=== PATIENT | female | born 1995 | race Caucasian/White ===

== ENCOUNTER 2020-11-28 16:36 | Outpatient (CLI) | payer BC, SELFPAY ==
--- NOTE | 2020-11-28 16:52 | OBADM ---
This patient, Reyna Huff, admitted to the OB room [facility] for observation. Patient/family oriented to hospital policies and general routines including ID bracelet, bed and alarms, visiting hours, pain management, procedures, bathroom and other care routines, personal items, smoking policy, room service/diet, and visiting hours. Patient/Family are encouraged to report perceived risks to care and to ask questions if they do not understand what they are told or what they should do.
[2020-11-28 16:54] VITALS: BP 130/79; PULSE 116; RESP 20; TEMP 36.9
[2020-11-28 16:58] VITALS: BMI 28.5
[2020-11-28 17:00] VITALS: BP 125/78; PULSE 115
[2020-11-28 17:28] LABS: Basophils Percent Auto 0.2 % (0.2-1.2); Eosinophils Absolute Auto 0.1 K/mm3 (0-0.3); Eosinophils Percent Auto 0.6 % (0-4.4); Hematocrit 36.4 % (37.0-47.0); Hemoglobin 12.3 g/dL (12.0-15.0); Immature Granulocyte Absolute 0.16 K/mm3 (0.00-0.031); Immature Granulocyte Percent A 1.5 % (0-0.5); Lymphocytes Absolute Auto 1.64 K/mm3 (0.9-3.2); Lymphocytes Percent Auto 15.1 % (18.3-44.2); Mean Corpuscular HGB Conc 33.8 g/dl (32-36); Mean Corpuscular Hemoglobin 31.9 pg (26-34); Mean Corpuscular Volume 94.5 fl (80-100); Mean Platelet Volume 12.2 fl (7.4-10.4); Monocytes Absolute Auto 0.7 K/mm3 (0.1-0.6); Monocytes Percent Auto 6.3 % (2.6-8.5); Neutrophils Absolute Auto 8.3 K/mm3 (1.3-6.7); Neutrophils Percent Auto 76.3 % (45.5-73.1); Platelet Count Result 136 k/mm3 (150-375); Red Blood Count 3.85 M/mm3 (4.2-5.4); Red Cell Distribution Width 13.2 % (11.5-14.5); White Blood Count 10.8 K/mm3 (4.5-10.0)
[2020-11-28 17:32] VITALS: BP 124/77; PULSE 102
[2020-11-28 17:33] LABS: Add Urine Microscopic? YES; Appearance Urine Cloudy (Clear); Bacteria Urine Trace /hpf; Bilirubin Urine Negative (Negative); Blood Urine Negative (Negative); Color Urine Yellow (Yellow); Glucose Urine UA Negative (Negative); Ketones Urine Negative (Negative); Leukocyte Esterase Ur 1+ LEU/UL (NEGATIVE); Mucus Urine Rare /lpf; Nitrate Urine Negative (Negative); Protein Urine Negative (Negative); RBC Urine 0-2 /hpf (0-2); Specific Grav Ur 1.006 (1.001-1.035); Squamous Epithelial Cell Urine Many /hpf (Few); Urobilinogen Urine Negative mg/dL (<2.0); WBC Urine 0-3 /hpf (0-3)
[2020-11-28 17:37] VITALS: BP 125/78; PULSE 115
[2020-11-28 17:41] LABS: Alanine Aminotransferase 17 U/L (4-35); Albumin Level 3.6 g/dL (3.5-5.1); Alkaline Phosphatase 110 U/L (38-126); Anion Gap 6 mmol/L (8-16); Aspartate Amino Transferase 24 U/L (14-36); Bilirubin,Total 0.3 mg/dL (0.2-1.3); Blood Urea Nitrogen 4 mg/dL (7-17); Calcium 9.2 mg/dL (8.4-10.2); Carbon Dioxide 23 mmol/L (22-30); Chloride 106 mmol/L (98-107); Estimated CRCL calculation 183 ml/min; Estimated Glomerular Filt Rate > 60; Glucose 103 mg/dL (65-110); Potassium 3.6 mmol/L (3.4-5.0); Sodium 135 mmol/L (137-145); Uric Acid 4.1 mg/dL (2.5-7.5)
[2020-11-28 18:00] VITALS: BP 101/81; PULSE 90
[2020-11-28 18:21] LABS: Creatinine Urine 32.9 mg/dL; Total Protein Urine Random 13 mg/dL
--- NOTE | 2020-11-28 18:52 | PM.OBTRLD ---
OB - Triage/Final Diagnosis Visit Information Comments/Additional reasons for admission: I have assessed the risk for this patient, Reyna Huff, and determined that she would benefit from observation care. Evaluation Laboratory results: Laboratory Tests 11/28/20 11/28/20 11/28/20 17:17 17:17 17:17 WBC 10.8 H RBC 3.85 L Hgb 12.3 Hct 36.4 L MCV 94.5 MCH 31.9 MCHC 33.8 RDW 13.2 Plt Count 136 L MPV 12.2 H Immature Gran % (Auto) 1.5 H Neut % (Auto) 76.3 H Lymph % (Auto) 15.1 L [place] % (Auto) 6.3 Eos % (Auto) 0.6 Baso % (Auto) 0.2 Lymph # (Auto) 1.64 [place] # (Auto) 0.7 H Eos # (Auto) 0.1 Baso # (Auto) 0.0 Abs Immat Gran (auto) 0.16 H Absolute Neuts (auto) 8.3 H Absolute Nucleated RBC 0.0 Nucleated RBC % 0.0 % Immature Plt Fraction 12.0 H Sodium Potassium Chloride Carbon Dioxide Anion Gap BUN Creatinine Estim Creat Clear Calc Estimated GFR Glucose Uric Acid Calcium Total Bilirubin AST ALT Alkaline Phosphatase Total Protein Albumin Urine Color Yellow Urine Appearance Cloudy H Urine pH 8.0 Ur Specific [place] 1.006 Urine Protein Negative Urine Glucose (UA) Negative Urine Ketones Negative Ur Blood (Man) Negative Urine Nitrate Negative Urine Bilirubin Negative Urine Urobilinogen Negative Ur Leukocyte Esterase 1+ H Urine RBC 0-2 Urine WBC 0-3 Ur Squamous Epith Cells Many H Urine Bacteria Trace Urine Mucus Rare U Random Total Protein 13 Urine Creatinine 32.9 Protein/Creat Ratio 2 0.40 H 11/28/20 17:17 WBC RBC Hgb Hct MCV MCH MCHC RDW Plt Count MPV Immature Gran % (Auto) Neut % (Auto) Lymph % (Auto) [place] % (Auto) Eos % (Auto) Baso % (Auto) Lymph # (Auto) [place] # (Auto) Eos # (Auto) Baso # (Auto) Abs Immat Gran (auto) Absolute Neuts (auto) Absolute Nucleated RBC Nucleated RBC % % Immature Plt Fraction Sodium 135 L Potassium 3.6 Chloride 106 Carbon Dioxide 23 Anion Gap 6 L BUN 4 L Creatinine 0.40 L Estim Creat Clear Calc 183 Estimated GFR > 60 Glucose 103 Uric Acid 4.1 Calcium 9.2 Total Bilirubin 0.3 AST 24 ALT 17 Alkaline Phosphatase 110 Total Protein 6.0 L Albumin 3.6 Urine Color Urine Appearance Urine pH Ur Specific [place] Urine Protein Urine Glucose (UA) Urine Ketones Ur Blood (Man) Urine Nitrate Urine Bilirubin Urine Urobilinogen Ur Leukocyte Esterase Urine RBC Urine WBC Ur Squamous Epith Cells Urine Bacteria Urine Mucus U Random Total Protein Urine Creatinine Protein/Creat Ratio 2 Vital signs: Vital Signs - 24 hr 11/28/20 16:54 11/28/20 17:00 11/28/20 17:32 Temperature 36.9 C Pulse Rate 116 H 115 H 102 H Respiratory Rate 20 Blood Pressure 130/79 125/78 124/77 Blood Pressure [Left Arm] 11/28/20 17:37 11/28/20 18:00 Temperature Pulse Rate 115 H 90 Respiratory Rate Blood Pressure 101/81 Blood Pressure [Left Arm] 125/78 Final Diagnosis (1) Headache: Code(s): R51.9 - Headache, unspecified Status: Acute
--- NOTE | 2020-11-28 18:55 | PC.NURSE ---
Dr. Cali reviewed labs and vital signs, in to discuss plan of care with pt. Orders to d/c home received
== END 2020-11-28 19:05 | disposition home or self-care (01) ==
LOC: ANHOBOP 16:41 → ANHOBPP 16:49
PROVIDERS: Visit Provider Obstetrics & Gynecology
DX: R51.9 Headache, unspecified (principal); H53.8 Other visual disturbances
CPT/HCPCS: 36415; 59025; 80053; 81001; 82570; 84156; 84550; 85025; 85055; 87086; 99199

== ENCOUNTER 2020-12-01 09:12 | Outpatient (RCR) | payer BC, SELFPAY ==
[2020-12-01 09:56] LABS: Basophils Percent Auto 0.3 % (0.2-1.2); Eosinophils Absolute Auto 0.2 K/mm3 (0-0.3); Eosinophils Percent Auto 1.9 % (0-4.4); Hematocrit 40.1 % (37.0-47.0); Hemoglobin 13.2 g/dL (12.0-15.0); Immature Granulocyte Absolute 0.19 K/mm3 (0.00-0.031); Immature Granulocyte Percent A 2.2 % (0-0.5); Lymphocytes Absolute Auto 1.81 K/mm3 (0.9-3.2); Lymphocytes Percent Auto 20.5 % (18.3-44.2); Mean Corpuscular HGB Conc 32.9 g/dl (32-36); Mean Corpuscular Hemoglobin 31.7 pg (26-34); Mean Corpuscular Volume 96.4 fl (80-100); Mean Platelet Volume 12.3 fl (7.4-10.4); Monocytes Absolute Auto 0.7 K/mm3 (0.1-0.6); Monocytes Percent Auto 7.8 % (2.6-8.5); Neutrophils Absolute Auto 5.9 K/mm3 (1.3-6.7); Neutrophils Percent Auto 67.3 % (45.5-73.1); Platelet Count Result 109 k/mm3 (150-375); Red Blood Count 4.16 M/mm3 (4.2-5.4); Red Cell Distribution Width 13.4 % (11.5-14.5); White Blood Count 8.8 K/mm3 (4.5-10.0)
[2020-12-01 09:56] LABS: Creatinine Urine 31.4 mg/dL; Total Protein Urine Random 15 mg/dL; Ur Ttl Prot Creatinine Ratio 0.48 mg/mg (0-0.20)
[2020-12-01 10:01] LABS: Alanine Aminotransferase 17 U/L (4-35); Albumin Level 3.7 g/dL (3.5-5.1); Alkaline Phosphatase 111 U/L (38-126); Anion Gap 7 mmol/L (8-16); Aspartate Amino Transferase 24 U/L (14-36); Bilirubin,Total 0.1 mg/dL (0.2-1.3); Blood Urea Nitrogen 8 mg/dL (7-17); Carbon Dioxide 22 mmol/L (22-30); Chloride 108 mmol/L (98-107); Estimated Glomerular Filt Rate > 60; Glucose 85 mg/dL (65-110); Potassium 3.6 mmol/L (3.4-5.0); Sodium 137 mmol/L (137-145)
[2020-12-01 10:07] LABS: Add Urine Microscopic? YES; Appearance Urine Cloudy (Clear); Bacteria Urine 1+ /hpf; Bilirubin Urine Negative (Negative); Blood Urine Negative (Negative); Color Urine Yellow (Yellow); Glucose Urine UA Negative (Negative); Ketones Urine Negative (Negative); Leukocyte Esterase Ur 2+ LEU/UL (NEGATIVE); Nitrate Urine Negative (Negative); Protein Urine Negative (Negative); Specific Grav Ur 1.008 (1.001-1.035); Squamous Epithelial Cell Urine Many /hpf (Few); Urobilinogen Urine Negative mg/dL (<2.0); WBC Urine 16-20 /hpf (0-3)
--- NOTE | 2020-12-01 10:30 | PC.NURSE ---
Called Dr. Cali with labs results. Will come discuss plan of care with pt.
[2020-12-01 11:16] VITALS: BP 113/81; PULSE 95
--- NOTE | 2020-12-01 11:16 | PC.NURSE ---
Pt transferred to labor for induction due to pre-eclampsia.
== END 2020-12-01 09:30 | disposition home or self-care (01) ==
LOC: ANHOBOP 09:12
PROVIDERS: Visit Provider Obstetrics & Gynecology
DX: O14.93 Unspecified pre-eclampsia, third trimester (principal); Z3A.38 38 weeks gestation of pregnancy
CPT/HCPCS: 36415; 59025; 80053; 81001; 82570; 84156; 84550; 85025; 87086

== ENCOUNTER 2020-12-01 09:12 | Inpatient (IN) | payer BC, SELFPAY ==
[2020-12-01] VITALS (180 sets, daily range): BP systolic 87–136; BP diastolic 47–89; PULSE 64–143; RESP 18; TEMP 36.8–37.4; O2SAT 97–100; BMI 28.6
--- NOTE | 2020-12-01 11:31 | PM.IMHP ---
H&P: HPI History of Present Illness Date/Time: 12/01/20 11:14 Reyna is a 25yo @ 37.1wks (JOSSELIN 12/21/[birth year]) who initially presented to L&D on 11/28/20 with a mild WISE and vision change that resolved spontaneously; she re-presented today for NST/BPP/Labs and was found to have a PC ratio of 0.49 and plts of 109. She denies any further WISE, vision changes, RUQ pain over the weekend. She has been cramping all weekend. Good movement. No VB or LOF. Her is complicated by: - Pre-eclampsia without severe features - Rubella and pavro non-immune - Mild anemia on iron daily Chief Complaint: induction of labor Review of Systems Review of Systems: All systems reviewed & are unremarkable except as noted in HPI and below (HPI) [facility] Family History Family History Grandparent Cancer Hypertension Father Hypertension Social History Social History Substance use: never Spiritual care concerns: No Meds Home Medications and Allergies Home Medications Medication Instructions Recorded Confirmed Type ferrous sulfate 325 mg PO DAILY 11/28/20 11/28/20 History prenat.vits,cristina,[id number] 1 tablet PO DAILY 11/28/20 11/28/20 History [ #2] Allergies Allergy/AdvReac Type Severity Reaction Status Date / Time No Known Allergies Allergy Verified 11/28/20 12:49 Exam Const: General: cooperative, healthy appearing, comfortable and no acute distress Resp: Effort & Inspection: normal respiratory effort Cardio: Rate: regular rate GI: Inspection: normal to inspection and non-distended GI Palp: No abdominal tenderness and Yes Soft to palpation : Other: FHT's: 130's/ mod mikie/ + accels/ occasional mild variables -- overalll reassuring TOCO: irregular ctx Cervix: FT/30/-3 Membranes: intact Presentation: cephalic Skin: General skin exam: normal color Neuro: General: patient oriented x3 Extrem: Right lower extremity: edema Left lower extremity: edema Psych: Appearance: grossly normal Affect: normal affect Attitude: cooperative Assessment and Plan Assessment and plan (1) Pre-eclampsia in third trimester: Code(s): O14.93 - Unspecified pre-eclampsia, third trimester Status: Acute (2) Encounter for induction of labor: Code(s): Z34.90 - Encounter for supervision of normal , unspecified, unspecified trimester Status: Acute (3) : Qualifiers: Weeks of gestation: 37 weeks Qualified Code(s): Z3A.37 - 37 weeks gestation of Code(s): Z34.90 - Encounter for supervision of normal , unspecified, unspecified trimester Status: Acute Additional Plan - Admit to L&D for IOL - Cervidil now; plan for pitocin/AROM after - Continuous monitoring; currently reassuring - Monitor BP's/labs - Pt asymptomatic - Anesthesia consult PRN pain - GBS negative
--- NOTE | 2020-12-01 11:33 | WPDHPUPDATE1 ---
History and Physical Update Update Date/Time: 12/01/20 11:33 History and Physical has been reviewed, including an updated exam of the patient. There are NO changes in the patient's condition. Risks, benefits, and alternatives have been discussed and questions answered. Patient agrees to proceed with procedure.
--- NOTE | 2020-12-01 11:59 | LDADM ---
This patient, Reyna Huff, was admitted to Labor/Delivery/Recovery 108 on 12/01/20 at 09:12. Plans for labor, pain management and were discussed with patient. Patient/family oriented to hospital policies and general routines including ID bracelet, bed and alarms, visiting hours, pain management, procedures, bathroom and other care routines, personal items, smoking policy, room service/diet and guest tray routines, security routines, and visiting hours. Patient/Family are encouraged to report perceived risks to care and to ask questions if they do not understand what they are told or what they should do. See OBIX for further documentation.
[2020-12-01] MEDS: DINOPROSTONE 10 MG VAG INSERT VAGINAL (12:22)
[2020-12-01] MEDS: LACTATED RINGERS 1,000 ML 125 ML IV CONT ×2 (12:59→17:49)
[2020-12-01] MEDS: fentaNYL CITRATE INJ (*CRX) 100 MCG/2 ML VIAL 50 MCG IV PUSH (13:42)
[2020-12-01] MEDS: LACTATED RINGERS 1,000 ML 999 ML IV CONT (15:17)
--- NOTE | 2020-12-01 15:30 | P.PNAN_ITS ---
Anes - Initial Pre Proc Eval Procedure: labor epidural Date/Time: 12/01/20 15:30 Surgeon: Lynette Cali MD Pre Op Diagnosis: labor pain Pre Op Diagnosis: Induction of Labor Patient Data Age: 25 Gender: F Height: 1.65 m Weight: 78 kg Last Vital Signs Temp 37.3 C 12/01/20 12:00 Pulse 89 12/01/20 15:28 BP 117/61 12/01/20 15:28 Pulse Ox 100 12/01/20 15:26 Allergies Allergy/AdvReac Type Severity Reaction Status Date / Time No Known Allergies Allergy Verified 11/28/20 12:49 Home Medications Medication Instructions Recorded Confirmed Type ferrous sulfate 325 mg PO DAILY 11/28/20 11/28/20 History prenat.vits,cristina,[id number] 1 tablet PO DAILY 11/28/20 11/28/20 History [ #2] Laboratory Tests 12/01/20 12/01/20 12:04 12:04 RPR Pending Blood Type A Positive Antibody Screen Negative Patient hx anesthesia problems: none Family hx anesthesia problems: none Results Review: All pre-operative results and documents have been reviewed as part of the pre-operative evaluation. PMFSH Family History Family History Grandparent Cancer Hypertension Father Hypertension Social History Social History Smoking status: Never smoker Substance use: never Spiritual care concerns: No Anes - Eval Final PreProcedure Day of Procedure 12/01/20 15:30 Patient weight: overweight ASA classification: II Anesthesia type and monitoring: regional epidural and standard monitoring Results Review: All pre-operative results and documents have been reviewed as part of the pre-operative evaluation. Informed Consent: The patient's anesthetic plan and its attendant risks and siomara efits were discussed with the patient/family/POA. Questions were solicited and answers provided to the satisfaction of the patient/family/POA.
--- NOTE | 2020-12-01 16:35 | PM.OBPNLAB ---
Pain Control Date/time seen: 12/01/20 16:35 Pain control: epidural Pelvic Exam Dilation (cm): 3 Effacement (%): 50 station: -2 Amniotic membrane status: Ruptured (clear, AROM @ 1630) Contractions Monitor mode: External Contraction frequency: 2 Contraction pattern: Regular Contraction intensity: Moderate Status status: Category l Assessment and Plan Assessment: induction ongoing Plan: continuous present management Comments: - Pitocin augmentation if no change in cervix for contractions space out
[2020-12-01] MEDS: OXYTOCIN 30 UNITS/NS 500 ML 30 UNITS/500 ML BAG 999 UNITS IV CONT (21:20)
--- NOTE | 2020-12-01 21:45 | PM.OBPRVD ---
OB - Delivery Note Procedure Delivery date: 12/01/20 events: Pre-Eclampsia Induction method: per cervidil protocol Delivery augmentation: rupture of membranes Delivery monitor: external FHT and external uterine Route of delivery: Laceration Description: Periurethral (right) and Labial (left) Delivery repair: vicryl Specimen: Yes Quantitative Blood Loss (ml): 200 Anesthesia type: Epidural Disposition: floor [place] Baby Date of : 12/01/20 Time of : 21:16 Weeks of gestation at delivery: 37 (.1) Infant gender: Male Weight (pounds): 6 Weight (ounces): 12 presentation: vertex position: Right Occiput Anterior Placenta delivery description: Expressed cord vessel description: 3 Vessels and Delayed Cord Clamping score one minute: 9 score five minutes: 9 Narrative: Reyna rapidly progressed to complete dilation with desire to push. She pushed for approximately 15 minutes with good maternal effort. She delivered the head over intact perineum. No nuchal cord was palpated. She easily delivered the 's shoulders and body without complication. The infant had spontaneous cry and was immediately placed skin to skin. His mouth was bulb suctioned. Delayed cord clamping was performed. The umbilical cord was then clamped and cut. With Pitocin running and gentle downward traction on the cord, the placenta delivered without complications. Bimanual massage was performed and good fundal tone with minimal bleeding was noted. The cervix, vagina, perineum were examined and a left labial laceration and a right periurethral laceration were noted. The right periurethral laceration was repaired using 3-0 Vicryl in 2 separate U stitches and good hemostasis was noted. The left labial laceration was repaired using 3-0 Vicryl in the normal fashion. Good hemostasis was noted and the fundus was palpated firm. Sponge, lap, instrument, and needle counts were correct at the end of the procedure. Mom and baby were left bonding in the birthing suite in stable condition.
[2020-12-01] MEDS: OXYTOCIN 30 UNITS/NS 500 ML 30 UNITS/500 ML BAG 125 UNITS IV CONT (21:51)
[2020-12-01] MEDS: IBUPROFEN 600 MG TABLET PO (23:51)
[2020-12-02] VITALS (7 sets, daily range): BP systolic 115–144; BP diastolic 51–76; PULSE 89–112; RESP 18; TEMP 36.4–37.3; O2SAT 99–100
[2020-12-02] MEDS: ACETAMINOPHEN 325 MG TABLET 650 MG PO (03:50)
[2020-12-02 05:46] LABS: Hematocrit 33.5 % (37.0-47.0); Hemoglobin 11.2 g/dL (12.0-15.0)
--- NOTE | 2020-12-02 07:21 | WPDANLDPN2 ---
Anes-Prog Note L&D Date/Time: 12/02/20 07:21 Comfortable throughout: labor and delivery Neuraxial method: epidural Epidural/Spinal procedure site: clean & non-tender Neuro status: Neuro function grossly intact. Cardiovascular status: normal Respiratory status: normal Airway patency: baseline Mental status: baseline Post-Op hydration status: normal Vital Signs: Last Vital Signs Temp 36.7 C 12/02/20 04:00 Pulse 112 H 12/02/20 04:00 Resp 18 12/02/20 04:00 BP 120/51 L 12/02/20 04:00 Pulse Ox 100 12/02/20 04:00 Pain score (VAS): 02/16 I/O: Intake & Output 12/01/20 12/01/20 12/02/20 15:59 23:59 07:59 Intake Total 1000 1500 Output Total 1380 Balance 1000 120 Post-procedural complaints: none Patient feedback: Patient satisfied with anesthetic care.
--- NOTE | 2020-12-02 08:45 | PC.NURSE ---
Mother called out for assist with feeding, reporting has been sleepy and has not fed since 2 am. Mother has been given a nipple shield and pumped at 2 to give EBM. is able to freely thrust tongue past gum ridge and flange both lips. Skin is intact on both nipples, no redness and bruising noted. Discussed establishing in the late infant may be more difficult due to their immaturity, may be less alert, have less stamina, and have greater difficulty with latch, suck, and swallow. Infant?s feeding may impact mother?s milk supply, pumping may need to be continued until milk supply is well established and is able to effective without supplementation. Reviewed feeding cues, frequencies, duration of feedings, feeding elimination flow sheet, and signs of adequate intake. Demonstrated stimulation techniques to wake for feeding. Assisted with infant to breast. Reviewed positioning/alignment in cross cradle, holding breast in ?U? hold and guided asymmetrical latch on. Reviewed rational for each. Infant able to latch correctly within a few attempts. Infant made a few weak attempts to nurse with no swallowing noted with long pausing between short bursts. . Reviewed signs of a correct latch, effective nursing and suck swallow ratio. was able to maintain latch without discomfort to mother. Suggested mother stimulate while feeding to increase stimulate, increase intake and to assist with maintaining deep latch. Demonstrated how to adjust latch more deeply while feeding if needed. did not respond to stimulation, he remained latch with no suckling noted. Discussed the difference of effective vs ineffective feeding. Reviewed infant is latching with good burst of suckling, he is not feeding consistently with adequate milk transfer at this time and continues to need to be supplement after . Feeding options discussed, Feeding Plan is for mother to put infant to breast each feeding for up to 15 minutes, then pace feed supplement of EBM/formula 20 mls and pump for 10-15 minutes. Parents are comfortable with supplementation and pumping. If infant begins to nurse effectively with long draws and frequent swallowing noted, may decrease supplementation and discontinue pumping. Suggested mother have LC extruding machine operator observe feeding before discontinuing supplementation. Nipple care reviewed of lanolin after feedings, warm compresses as needed. Instructed mother to call out for RN assistance if she is unable to latch for feeding or she has discomfort with nursing. Instructed feeding should be initiated three hours from start of last feeding or if feeding cues are noted before. Mother voiced understanding of information shared.
[2020-12-02] MEDS: DOCUSATE SODIUM 100 MG CAPSULE PO (09:43)
[2020-12-02] MEDS: MULTIVIT/MIN/PREN/FOL AC/IRON TABLET 1 TAB PO (09:43)
[2020-12-02] MEDS: IBUPROFEN 600 MG TABLET PO (09:47)
[2020-12-02 10:52] LABS: Rapid Plasma Reagin Non-Reactive (NonReactive)
--- NOTE | 2020-12-02 12:05 | PC.NURSE ---
Mother called out for assist with feeding. Demonstrated stimulation techniques to wake for feeding. Assisted with to breast. Reviewed positioning/alignment in cross cradle, holding breast in ?U? hold and guided asymmetrical latch on. Reviewed rational for each. able to latch correctly within a few attempts. Infant made a few weak attempts to nurse with no swallowing noted with long pausing between short bursts. Reviewed signs of a correct latch, effective nursing and suck swallow ratio. Infant was able to maintain latch without discomfort to mother. Suggested mother stimulate while feeding to increase stimulate, increase intake and to assist with maintaining deep latch. Demonstrated how to adjust latch more deeply while feeding if needed. Infant did not respond to stimulation, he remained latch with no suckling noted. Attempt for 15 minutes with no effective nursing noted. Discussed initiating feeding plan of attempting to breast each feeding fo 10-15 minutes, if no effective feeding noted, parents with supplement 15-20 mls and then pump for 15 minutes. Report to primary RN of feeding plan.
--- NOTE | 2020-12-02 16:38 | PM.OBPNVD ---
OB - PN: Subj Subjective Date/time seen: 12/02/20 16:38 PPD#1 Reyna reports doing well today. She reports being very sore, but the pain meds are helping. 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 She has already voided, had a BM, showered/ambulated, and tolerated regular diet. She denies any symptoms of anemia. No symptoms of PEC. She is breast feeding/pumping and supplementing. She would like her son to be circumcised today. She desires to go home as soon as possible. She denies fever, chills, CP, SOB, N/V, WISE, vision changes, palpitations or dizziness. OB - PN: Obj Data Labs CBC & Chem 7: 12/02/20 03:52 Labs: Laboratory Results - last 24 hr 12/01/20 12/02/20 12:04 03:52 Hgb 11.2 L Hct 33.5 L RPR Non-reactive OB - PN A/P Assessment and Plan (1) Status post normal vaginal delivery: Status: Acute (2) Pre-eclampsia in third trimester: Code(s): O14.93 - Unspecified pre-eclampsia, third trimester Status: Acute Plan day: 1 Plan: routine care Comments: - will repeat labs in AM - Monitor BPs overnight; if normal-mild can be discharged home tomorrow - Pelvic rest; take meds as prescribed - ER return precautions: fever, bleeding, HTN, n/v/abd pain - son circumcised w/o issue - f/u in clinic in 2 wks. Time Spent With Patient Time: Total time spent is greater than 50% in coordination of care (as documented) at patient's floor/unit and/or counseling patient: Review of Systems Review of Systems: All systems reviewed & are unremarkable except as noted in HPI and below (HPI) Exam Const: General: cooperative, healthy appearing, comfortable and no acute distress Resp: Effort & Inspection: normal respiratory effort Auscultation: clear to auscultation bilaterally Cardio: Rate: regular rate GI: Inspection: normal to inspection and non-distended GI Palp: No abdominal tenderness and Yes Soft to palpation Auscultation: normal bowel sounds : Other: fundus firm Skin: General skin exam: normal color Neuro: General: patient oriented x3 Extrem: General: normal to inspection Psych: Appearance: grossly normal Affect: normal affect Attitude: cooperative
[2020-12-03] MEDS: IBUPROFEN 600 MG TABLET PO ×2 (02:28→09:01)
[2020-12-03 04:15] VITALS: BP 115/62; PULSE 89; RESP 18; TEMP 36.4; O2SAT 100
[2020-12-03 05:09] LABS: Basophils Absolute Auto 0.1 K/mm3 (0.0-0.1); Basophils Percent Auto 0.4 % (0.2-1.2); Eosinophils Absolute Auto 0.3 K/mm3 (0-0.3); Eosinophils Percent Auto 1.9 % (0-4.4); Hematocrit 34.5 % (37.0-47.0); Hemoglobin 11.4 g/dL (12.0-15.0); Immature Granulocyte Absolute 0.15 K/mm3 (0.00-0.031); Immature Granulocyte Percent A 1.1 % (0-0.5); Immature Platelet Fraction Pct 11.3 % (0.9-11.2); Lymphocytes Absolute Auto 2.83 K/mm3 (0.9-3.2); Lymphocytes Percent Auto 20.4 % (18.3-44.2); Mean Corpuscular Hemoglobin 32.2 pg (26-34); Mean Corpuscular Volume 97.5 fl (80-100); Monocytes Absolute Auto 1.1 K/mm3 (0.1-0.6); Monocytes Percent Auto 7.9 % (2.6-8.5); Neutrophils Absolute Auto 9.5 K/mm3 (1.3-6.7); Neutrophils Percent Auto 68.3 % (45.5-73.1); Platelet Count Result 113 k/mm3 (150-375); Red Blood Count 3.54 M/mm3 (4.2-5.4); Red Cell Distribution Width 13.9 % (11.5-14.5); White Blood Count 13.9 K/mm3 (4.5-10.0)
[2020-12-03 05:19] LABS: Alanine Aminotransferase 18 U/L (4-35); Albumin Level 3.1 g/dL (3.5-5.1); Alkaline Phosphatase 90 U/L (38-126); Anion Gap 7 mmol/L (8-16); Aspartate Amino Transferase 33 U/L (14-36); Bilirubin,Total 0.2 mg/dL (0.2-1.3); Blood Urea Nitrogen 5 mg/dL (7-17); Calcium 8.6 mg/dL (8.4-10.2); Carbon Dioxide 24 mmol/L (22-30); Chloride 107 mmol/L (98-107); Estimated CRCL calculation 151 ml/min; Estimated Glomerular Filt Rate > 60; Glucose 72 mg/dL (65-110); Potassium 3.6 mmol/L (3.4-5.0); Sodium 138 mmol/L (137-145)
[2020-12-03 07:40] VITALS: BP 118/75; PULSE 87; RESP 18; TEMP 36.9; O2SAT 100
[2020-12-03 09:00] VITALS: PULSE 113; RESP 18; O2SAT 100
[2020-12-03] MEDS: MULTIVIT/MIN/PREN/FOL AC/IRON TABLET 1 TAB PO (09:01)
[2020-12-03] MEDS: DOCUSATE SODIUM 100 MG CAPSULE PO (09:01)
--- NOTE | 2020-12-03 11:05 | PC.NURSE ---
Consult with pt., mother reports she continues to put to breast each feeding, infant remains sleepy with little effective nursing noted. Mother will then supplement and pump. Parents report infant is eagerly nippling bottle without issue. Mother is pumping 1-3m mls of colostrum each session. Mother has a [email or web address] II pump for home use and is comfortable with use. Discussed current feeding Plan is for mother to put infant to breast each feeding for up to 15 minutes, then pace feed supplement 25-30 mls and pump for 10-15 minutes. Parents are comfortable with supplementation and pumping. If infant begins to nurse effectively with long draws and frequent swallowing noted, infant may decrease supplementation and discontinue pumping. Suggested mother have LC material expeditor observe feeding before discontinuing supplementation. Discussed increasing supplementation as infant requires to satisfactions. Reviewed paced feeding and suggested to stop when is satisfied, as long as infant is having required output. With increased supplementation infant may not want to feed for 4 hours. Mother will continue to pump on feeding schedule and will increase session to 20 minutes if pumping every 4 hours. Requested mother call out next feeding.
[2020-12-03 11:43] VITALS: BP 132/66; PULSE 113; RESP 18; TEMP 36.5; O2SAT 100
[2020-12-03] MEDS: MEASLES,MUMPS,RUBELLA VACCINE 0.5 ML VIAL SUB-Q (12:52)
--- NOTE | 2020-12-03 13:07 | PC.NURSE ---
Mother states she is ready for discharge and did not call out for last feeding. Mother states she used suggestion of supplementing 5-10 mils then putting infant to breast. Infant latched for 10-20 minutes of good bursts of suckling reported by parents. FOB completed feeding with formula. Mother is able to independently latch infant with appropriate positioning/alignment. She denies any nipple discomfort, is feeding as required and waking to feed if needed. has few attempts with effective feedings all feedings followed with supplementation in the past 24 hours, and is currently meeting outcomes for weight, output, jaundice and feeding frequencies. Infant is more awake and eager to feed today. Infant continues to require supplementation for ineffective feedings. Mother continues to pump without difficulties or discomfort after all feedings due to ineffective feeding. Mother states she feels confident to continue current feeding plan at home. Mother has her own double electric pump for home use. Discussed increasing supplementation as requires to satisfactions. Reviewed paced feeding and suggested to stop when is satisfied, as long as infant is having required output. With increased supplementation infant may not want to feed for 4 hours. Mother will continue to pump on feeding schedule and will increase session to 20 minutes if pumping every 4 hours. Reviewed once mother?s milk is established and is effectively feeding, infant may have increased intake with nursing. If is effective feeding with long draws and frequent swallowing noted, may be ready to decrease/discontinue supplementation. Advised not to discontinue supplement until ICP, Follow-Up RN or LC has a pre/post weighted evaluation of feeding. Discussed nipple shield weaning techniques Reviewed transition to breast milk, signs of adequate intake, and engorgement/relief. Instructed to call ICP if intake/output less than required. Reviewed regular medications mother is taking. Information provided per Ashley. Reviewed community resources on the [employer] website and in the Mom/Baby guide. Information on outpatient services provided. Mother has no further questions at this time.
[2020-12-04 10:32] VITALS: BP 115/70; PULSE 99; RESP 20; TEMP 37.2; O2SAT 100
--- NOTE | 2020-12-18 16:02 | PM.OBDSVD ---
DS: Admitting Diagnosis Discharge Date 12/03/20 Admitting Diagnosis pre-eclampsia w/o severe features DS: Discharge Diagnosis Discharge Diagnosis (1) Status post normal vaginal delivery: Status: Acute (2) Pre-eclampsia in third trimester: Code(s): O14.93 - Unspecified pre-eclampsia, third trimester Status: Acute OB - DS: Summary OB Procedures : NST and Ultrasound OB Procedures Intrapartum: Spontaneous Vag Delivery OB Procedures: : None Peripartum Data Delivery Method: Natural Vaginal Laceration Description: Periurethral and Labial complications: none 1: Gender: Male Disposition of : home Status at Discharge Functional status at discharge: independent ambulation Overall status at discharge: patient is back to baseline Time Spent with Patient Time attestation: Total time spent providing and/or coordinating discharge services: Time spent: Less than 30 minutes Exam Const: General: cooperative, healthy appearing, comfortable and no acute distress Resp: Effort & Inspection: normal respiratory effort Auscultation: clear to auscultation bilaterally Cardio: Rate: regular rate GI: Inspection: normal to inspection and non-distended GI Palp: No abdominal tenderness and Yes Soft to palpation Auscultation: normal bowel sounds : Other: fundus firm Skin: General skin exam: normal color Neuro: General: patient oriented x3 Extrem: General: normal to inspection Psych: Appearance: grossly normal Affect: normal affect Attitude: cooperative DS: Data Data Completed and Pending Completed studies during hospitalization: Pending at discharge 12/01/20 23:28 Surgical [PTH] Routine Discharge Plan Discharge Attending physician on discharge: Lynette Cali Consulting providers: Hilton Jackson Discharging Clinician: Lynette Cali Anticipated Discharge Date/Time: 12/03/20 11:00 Patient Disposition: Home, Self-Care Activity: pelvic rest Diet: regular Discharge Instructions: Education: Mom and Baby Guide Given to: Mother Follow-Up: Call your delivering provider's office for an appointment to be seen in: 2 weeks Mom and baby should come to the [facility] for the follow-up appointment. Appointment Date/Time: December 04, 2020 at 10:00 am What to expect at your follow-up visit: Blood Pressure Check Physical Assessment Call [phone] if you are unable to keep your appointment time. BREAST CARE: * Wear a snug supportive bra. * For engorgement discomfort: Breast Feeding: * Apply warm moist washcloths * Express milk as needed to relieve engorgement * Wear loose clothing * For sore nipples: * Identify correct latch-on * Apply warm moist washcloths before and after nursing * Air dry nipples after nursing * May apply Lansinoh cream to nipples EPISIOTOMY/PERINEAL CARE: * Until bleeding stops, use your lindsey bottle after urinating * Change your pad frequently throughout the day * You may take sitz baths several times a day (fill your bathtub with warm water and soak for 20 minutes.) Do NOT bathe in the water * No tub baths until seen by your physician - You may shower ACTIVITY: * Rest as much as possible. * Do not exercise or lift anything heavier than your baby (such as laundry or other children.) * Avoid stairs or driving as much as possible. * Do not put anything into the vagina. No douching, tampons, or sexual activity until seen by physician. NOTIFY PHYSICIAN IF YOU HAVE ANY QUESTIONS OR IF ANY OF THE FOLLOWING SYMPTOMS OCCUR: * If your vaginal area becomes red, swollen, or more painful than what you have experienced in the hospital. * If your vaginal bleeding becomes foul smelling. * If your vaginal bleeding becomes more heavy than a period or if your bleeding changes from pink to bright red.
== END 2020-12-03 15:10 | disposition home or self-care (01) | DRG 807 ==
LOC: ANHLDR 11:20 → ANHOB2 12-02 00:18
PROVIDERS: Admitting Provider Obstetrics & Gynecology; Visit Provider Obstetrics & Gynecology
DX: O14.04 Mild to moderate pre-eclampsia, complicating childbirth (principal); Z37.0 Single live birth; O99.02 Anemia complicating childbirth; O71.82 Other specified trauma to perineum and vulva; O70.0 First degree perineal laceration during delivery; O76 Abnormality in fetal heart rate and rhythm complicating labor and delivery; Z3A.37 37 weeks gestation of pregnancy; D64.9 Anemia, unspecified; Z23 Encounter for immunization
CPT/HCPCS: 36415; 59025; 80053; 81001; 82570; 84156; 84550; 85014; 85018; 85025; 85055; 86592; 86850; 86900; 86901; 87086; 88307; 90471; 90653; 90710; 99199; A9270; G0008; J2590; J2795; J3010; J7120

== ENCOUNTER 2022-12-16 10:25 | Outpatient (CLI) | payer BC, SELFPAY ==
[2022-12-16 12:22] LABS: HIV 1/2 Ab P24 Ag Result Negative (Negative)
== END 2022-12-16 10:26 | disposition home or self-care (01) ==
LOC: ANHLAB 10:27
PROVIDERS: Visit Provider Obstetrics & Gynecology
DX: Z34.90 Encounter for supervision of normal pregnancy, unspecified, unspecified trimester (principal); Z3A.00 Weeks of gestation of pregnancy not specified
CPT/HCPCS: 36415; 86703; G0432

== ENCOUNTER 2023-04-01 10:31 | Outpatient (CLI) | payer BC, SELFPAY ==
[2023-04-01 12:02] LABS: Basophils Percent Auto 0.4 % (0.2-1.2); Eosinophils Absolute Auto 0.1 K/mm3 (0-0.3); Eosinophils Percent Auto 1.2 % (0-4.4); Hematocrit 35.5 % (37.0-47.0); Hemoglobin 11.7 g/dL (12.0-15.0); Immature Granulocyte Percent A 2.2 % (0-0.5); Lymphocytes Absolute Auto 1.73 K/mm3 (0.9-3.2); Mean Corpuscular Volume 93.9 fl (80-100); Mean Platelet Volume 11.3 fl (7.4-10.4); Monocytes Absolute Auto 0.5 K/mm3 (0.1-0.6); Monocytes Percent Auto 5.2 % (2.6-8.5); Neutrophils Absolute Auto 6.6 K/mm3 (1.3-6.7); Platelet Count Result 141 k/mm3 (150-375); Red Blood Count 3.78 M/mm3 (4.2-5.4); Red Cell Distribution Width 13.4 % (11.5-14.5); White Blood Count 9.1 K/mm3 (4.5-10.0)
[2023-04-01 12:13] LABS: Glucose 1 Hour PP 50gm Dose 107 mg/dL
[2023-04-01 12:53] LABS: HIV 1/2 Ab P24 Ag Result Negative (Negative)
== END 2023-04-01 10:32 | disposition home or self-care (01) ==
LOC: ANHLAB 10:32
PROVIDERS: Visit Provider Obstetrics & Gynecology
DX: Z34.90 Encounter for supervision of normal pregnancy, unspecified, unspecified trimester (principal); Z3A.00 Weeks of gestation of pregnancy not specified
CPT/HCPCS: 36415; 82947; 85025; 86703; G0432

== ENCOUNTER 2023-04-28 08:52 | Outpatient (CLI) | payer BC, SELFPAY ==
[2023-04-28 09:53] LABS: Basophils Absolute Auto 0.1 K/mm3 (0.0-0.1); Basophils Percent Auto 0.5 % (0.2-1.2); Eosinophils Absolute Auto 0.2 K/mm3 (0-0.3); Eosinophils Percent Auto 1.4 % (0-4.4); Hematocrit 37.8 % (37.0-47.0); Hemoglobin 12.3 g/dL (12.0-15.0); Immature Granulocyte Absolute 0.44 K/mm3 (0.00-0.031); Immature Granulocyte Percent A 4.2 % (0-0.5); Immature Platelet Fraction Pct 7.8 % (0.9-11.2); Lymphocytes Absolute Auto 1.92 K/mm3 (0.9-3.2); Lymphocytes Percent Auto 18.3 % (18.3-44.2); Mean Corpuscular HGB Conc 32.5 g/dl (32-36); Mean Corpuscular Hemoglobin 31.1 pg (26-34); Mean Corpuscular Volume 95.5 fl (80-100); Mean Platelet Volume 11.7 fl (7.4-10.4); Monocytes Absolute Auto 0.8 K/mm3 (0.1-0.6); Monocytes Percent Auto 7.2 % (2.6-8.5); Neutrophils Absolute Auto 7.2 K/mm3 (1.3-6.7); Neutrophils Percent Auto 68.4 % (45.5-73.1); Platelet Count Result 135 k/mm3 (150-375); Red Blood Count 3.96 M/mm3 (4.2-5.4); Red Cell Distribution Width 13.5 % (11.5-14.5); White Blood Count 10.5 K/mm3 (4.5-10.0)
== END 2023-04-28 08:53 | disposition home or self-care (01) ==
LOC: ANHLAB 08:54
PROVIDERS: Visit Provider Obstetrics & Gynecology
DX: O99.119 Other diseases of the blood and blood-forming organs and certain disorders involving the immune mechanism complicating pregnancy, unspecified trimester (principal); D69.6 Thrombocytopenia, unspecified; Z3A.00 Weeks of gestation of pregnancy not specified
CPT/HCPCS: 36415; 85025; 85055

== ENCOUNTER 2023-05-12 10:36 | Outpatient (CLI) | payer BC, SELFPAY ==
[2023-05-12 11:40] LABS: Hematocrit 37.7 % (37.0-47.0); Hemoglobin 12.3 g/dL (12.0-15.0); Immature Platelet Fraction Pct 7.7 % (0.9-11.2); Mean Corpuscular HGB Conc 32.6 g/dl (32-36); Mean Platelet Volume 11.3 fl (7.4-10.4); Platelet Count Result 124 k/mm3 (150-375); Red Blood Count 3.97 M/mm3 (4.2-5.4); Red Cell Distribution Width 13.7 % (11.5-14.5); White Blood Count 8.9 K/mm3 (4.5-10.0)
[2023-05-12 11:58] LABS: Alanine Aminotransferase 17 U/L (6-35); Albumin Level 3.8 g/dL (3.5-5.1); Alkaline Phosphatase 96 U/L (38-126); Anion Gap 5 mmol/L (4-12); Aspartate Amino Transferase 26 U/L (14-36); Bilirubin,Total 0.2 mg/dL (0.2-1.3); Blood Urea Nitrogen 9 mg/dL (7-17); Calcium 9.3 mg/dL (8.4-10.2); Carbon Dioxide 24 mmol/L (22-30); Chloride 106 mmol/L (98-107); Estimated Glomerular Filt Rate > 60; Glucose 85 mg/dL (65-110); Potassium 4.1 mmol/L (3.4-5.0); Sodium 135 mmol/L (137-145)
[2023-05-21 19:47] LABS: Chenodeoxycholic Acid 1.6 umol/L (< OR = 3.9); Cholic Acid <0.5 umol/L (< OR = 2.8); Deoxycholic Acid <0.5 umol/L (< OR = 2.3); Total Bile Acids 1.6 umol/L (< OR = 8.3)
== END 2023-05-12 10:37 | disposition home or self-care (01) ==
LOC: ANHLAB 10:38
PROVIDERS: Visit Provider Obstetrics & Gynecology
DX: O99.119 Other diseases of the blood and blood-forming organs and certain disorders involving the immune mechanism complicating pregnancy, unspecified trimester (principal); O99.719 Diseases of the skin and subcutaneous tissue complicating pregnancy, unspecified trimester; D69.6 Thrombocytopenia, unspecified; L29.9 Pruritus, unspecified; Z3A.00 Weeks of gestation of pregnancy not specified
CPT/HCPCS: 36415; 80053; 82542; 85027; 85055

== ENCOUNTER 2023-06-21 11:11 | Outpatient (RCR) | payer BC, SELFPAY ==
--- NOTE | ~2023-06-21 | US_ITS ---
EXAMINATION: US OB limited w BPP DATE: 06/21/2023 12:32 INDICATION: Postdates. TECHNIQUE: Real-time pelvic ultrasound was performed. COMPARISON: Ultrasound 01/26/2023 FINDINGS: There is a single living fetus in vertex presentation. The placenta is on the right. heart rat e is 135 beats per minute (bpm). The amniotic fluid index is 16.0 cm, which is normal. Biophysical profile performed by the technologist: breathing (30 sec sustained breathing in 30 minutes): 2 out of 2 movement (3 gross body movements in 30 minutes): 2 out of 2 tone (one episode of bltvpbv-ktmktjkky-exdxqzu limb movement): 2 out of 2 Amniotic fluid pocket (2 cm): 2 out of 2 Total score: 8 out of 8 IMPRESSION: 1. Single living fetus in vertex presentation. 2. Biophysical profile 8 out of 8. Reviewed, dictated and finalized at location A.
[2023-06-21 12:41] VITALS: BP 119/71
== END 2023-07-25 08:22 | disposition home or self-care (01) ==
LOC: ANHOBOP 11:11
PROVIDERS: Visit Provider Obstetrics & Gynecology
DX: O48.0 Post-term pregnancy (principal); Z3A.40 40 weeks gestation of pregnancy
CPT/HCPCS: 59025; 76815; 76819

== ENCOUNTER 2023-06-22 13:27 | Inpatient (IN) | payer BC, SELFPAY ==
[2023-06-22] VITALS (116 sets, daily range): BP systolic 72–148; BP diastolic 44–106; PULSE 68–135; TEMP 36.4; O2SAT 96–100
--- NOTE | ~2023-06-22 | US_ITS ---
EXAMINATION: US OB BPP wo non-stress DATE: 06/22/2023 16:11 INDICATION: Decelerations. Third trimester. TECHNIQUE: Real-time pelvic ultrasound was performed. COMPARISON: Ultrasound 06/21/2023 FINDINGS: There is a single living fetus in vertex presentation. The placenta is posterior and fundal. h eart rate is 135 beats per minute (bpm). The deepest vertical pocket is 5.0 cm, which is normal. Biophysical profile performed by the technologist: breathing (30 sec sustained breathing in 30 minutes): 2 out of 2 movement (3 gross body movements in 30 minutes): 2 out of 2 tone (one episode of tbwbrwk-yrixtdzpl-igtvbdx limb movement): 2 out of 2 Amniotic fluid pocket (2 cm): 2 out of 2 Total score: 8 out of 8 IMPRESSION: 1. Single living fetus in vertex presentation. 2. Biophysical profile 8 out of 8. Reviewed, dictated and finalized at location E.
--- NOTE | 2023-06-22 18:39 | P.PNAN_ITS ---
Anes - Eval Pre Procedure Procedure: labor epidural Date/Time: 06/22/23 18:39 Pre Op Diagnosis: contractions Patient Data Age: 28 Gender: F Height: Weight: Last Vital Signs Pulse 102 H 06/22/23 18:30 BP 140/71 06/22/23 18:30 Pulse Ox 100 06/22/23 18:39 Allergies Allergy/AdvReac Type Severity Reaction Status Date / Time No Known Allergies Allergy Verified 06/13/23 09:59 Home Medications Medication Instructions Recorded Confirmed Type aspirin 81 mg tablet,delayed 81 mg PO DAILY 01/13/23 06/21/23 History release (Adult Low Dose Aspirin) vits no.126-ferrous fum 1 tablet PO DAILY 01/13/23 06/21/23 History 28 mg iron-folic acid 800 mcg tablet (Classic ) famotidine 20 mg tablet 20 mg PO BID #60 tabs 03/17/23 06/21/23 Rx ferrous sulfate 325 mg (65 mg 65 mg PO DAILY 05/30/23 06/21/23 History iron) tablet Patient hx anesthesia problems: none Family hx anesthesia problems: none Results Review: All pre-operative results and documents have been reviewed as part of the pre- operative evaluation. FORMERLY [facility], [facility]1983 Past Medical History Medical History Depression seasonal depression - no rx meds Eczema Surgical History Surgical History History of surgical procedure on mouth Family History Family History Grandparent Cancer Hypertension Father Hypertension Social History Social History Smoking status: Never smoker Alcohol intake: never Substance use: never Substance use type: does not use Lack of Transportation: No Lack of Food: Never True Current Housing: I Have Housing Concerned About Future Housing: No Difficulty Paying Gas/Electric Bills: No Difficulty Paying for Meds: No Currently Unemployed: No Difficulty w/ Childcare or Family Care: Decline to Answer Living arrangements: with family Additional living arrangements comments: Occupation/Education: occupation 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
[2023-06-22] MEDS: LACTATED RINGERS 1,000 ML 125 ML IV CONT ×2 (21:00→22:30)
[2023-06-22 21:10] LABS: Basophils Percent Auto 0.3 % (0.2-1.2); Eosinophils Absolute Auto 0.1 K/mm3 (0-0.3); Eosinophils Percent Auto 0.7 % (0-4.4); Hematocrit 41.4 % (37.0-47.0); Hemoglobin 13.8 g/dL (12.0-15.0); Immature Granulocyte Absolute 0.24 K/mm3 (0.00-0.031); Immature Granulocyte Percent A 1.9 % (0-0.5); Lymphocytes Absolute Auto 2.24 K/mm3 (0.9-3.2); Lymphocytes Percent Auto 17.8 % (18.3-44.2); Mean Corpuscular HGB Conc 33.3 g/dl (32-36); Mean Corpuscular Hemoglobin 31.7 pg (26-34); Mean Corpuscular Volume 95.2 fl (80-100); Mean Platelet Volume 12.1 fl (7.4-10.4); Monocytes Absolute Auto 0.9 K/mm3 (0.1-0.6); Monocytes Percent Auto 6.9 % (2.6-8.5); Neutrophils Absolute Auto 9.1 K/mm3 (1.3-6.7); Neutrophils Percent Auto 72.4 % (45.5-73.1); Platelet Count Result 140 k/mm3 (150-375); Red Blood Count 4.35 M/mm3 (4.2-5.4); Red Cell Distribution Width 13.2 % (11.5-14.5); White Blood Count 12.6 K/mm3 (4.5-10.0)
[2023-06-22] MEDS: PHENYLEPHRINE 1,000 MCG/10 ML SYRINGE 100 MCG IV PUSH ×2 (21:40→21:45)
--- NOTE | 2023-06-22 23:26 | LDADM ---
This patient, Reyna Huff, was admitted to Labor/Delivery/Recovery 107 on 06/22/23 at 13:27. Plans for labor, pain management and were discussed with patient. Patient/family oriented to hospital policies and general routines including ID bracelet, bed and alarms, visiting hours, pain management, procedures, bathroom and other care routines, personal items, smoking policy, room service/diet and guest tray routines, security routines, and visiting hours. Patient/Family are encouraged to report perceived risks to care and to ask questions if they do not understand what they are told or what they should do. See OBIX for further documentation.
[2023-06-23] VITALS (71 sets, daily range): BP systolic 108–131; BP diastolic 51–94; PULSE 67–140; RESP 18; TEMP 36.6–37.3; O2SAT 83–100
[2023-06-23] MEDS: LACTATED RINGERS 1,000 ML 125 ML IV CONT (02:05)
[2023-06-23] MEDS: OXYTOCIN 30 UNITS/NS 500 ML 30 UNITS/500 ML BAG IV CONT (02:19)
--- NOTE | 2023-06-23 03:32 | WPDHPUPDATE1 ---
History and Physical Update Update Date/Time: 06/23/23 03:32 28 yo at 40w3d who presents in labor History and Physical has been reviewed, including an updated exam of the patient. There are NO changes in the patient's condition. Risks, benefits, and alternatives have been discussed and questions answered. Patient agrees to proceed with procedure. A/P: - H/o pre-eclampsia without severe features--? ASA 162mg - SMA declined - Mild thrombocytopenia admit to L&D routine admission orders Rh+ GBS neg expectant management continuous EFM
--- NOTE | 2023-06-23 03:32 | PM.OBPRVD ---
OB - Vaginal Delivery Note Procedure Delivery date: 06/23/23 Induction method: None Delivery augmentation: Pitocin Delivery monitor: External FHT and External Uterine Route of delivery: Episiotomy description: None Laceration Description: Labial (left) Delivery repair: vicryl Specimen: No Quantitative Blood Loss (ml): 150 Anesthesia type: Epidural Disposition: Floor Complications: No immediate complications Narrative: Patient pushed for a spontaneous vaginal delivery. A nuchal x1 was noted and delivered through. The fetus was delivered atraumatically and placed on the maternal abdomen. The fetus was noted to have good tone, color, and cry with minimal stimulation. The cord was clamped and cut after 1 minute of life. The cord was double clamped and cut and a segment of cord was collected for cord gases. Cord blood was collected for blood type and Coomb's testing. The placenta delivered spontaneously and was noted to be intact. The perineum was inspected and noted to be intact. A left labial laceration was noted. The laceration was repaired wiht 3-0 vicryl in a running fashion. The uterus was firm and good hemostasis was noted. Baby Date of : 06/23/23 Time of : 03:15 Weeks of gestation at delivery: 40 gender: Male presentation: vertex position: Right Occiput Anterior Placenta delivery description: Spontaneous Cord Vessel Description: 3 Vessels and Nuchal Cord score one minute: 8 score five minutes: 9
[2023-06-23] MEDS: OXYTOCIN 30 UNITS/NS 500 ML 30 UNITS/500 ML BAG 125 UNITS IV CONT (04:18)
[2023-06-23] MEDS: WITCH HAZEL 40 PADS 1 PAD TOPICAL (06:43)
[2023-06-23] MEDS: BENZOCAINE 20% AER SPR (*SP) 56 GM CAN 1 SPRAY TOPICAL (06:44)
[2023-06-23] MEDS: ACETAMINOPHEN 325 MG TABLET 650 MG PO (07:41)
[2023-06-23] MEDS: DOCUSATE SODIUM 100 MG CAPSULE PO ×2 (08:48→16:42)
[2023-06-23] MEDS: MULTIVIT/MIN/PREN/FOL AC/IRON TABLET 1 TAB PO (08:48)
[2023-06-23] MEDS: IBUPROFEN 600 MG TABLET PO ×3 (08:55→23:42)
--- NOTE | 2023-06-23 10:44 | OBPPTRN ---
Patient transferred to post room #284 via wheelchair. Support person present. Oriented to unit, room, information board, rooming in, admission packet and security measures. Patient verbalizes understanding.
--- NOTE | 2023-06-23 11:53 | PC.NURSE ---
[id number] Introductions were made, then consulted with patient to assess needs related to . Discussed with mother her?plans to feed?her infant, the?experience so far going well without pain and the history of her first child for 2 years. hasn't latched in almost 4 hours and mother shared infant is tired. Assisted mother with changing a stool and wet diaper. has had more than required voids and stools since and mother shared that she is leaking milk. Mother encouraged to place pvgs-gc-ggom, responding to feeding cues and mother is confident. Resources provided for inpatient and outpatient services with the feeding sheet and name written on the communication board. Mother voiced understanding of information and will call if there is a request for assistance. Primary RN is present at the end of the consult.
[2023-06-23 17:11] LABS: Rapid Plasma Reagin Non-Reactive (NonReactive)
[2023-06-24 06:16] LABS: Hematocrit 39.3 % (37.0-47.0); Mean Corpuscular HGB Conc 33.1 g/dl (32-36); Mean Corpuscular Hemoglobin 31.6 pg (26-34); Mean Corpuscular Volume 95.6 fl (80-100); Mean Platelet Volume 12.2 fl (7.4-10.4); Platelet Count Result 104 k/mm3 (150-375); Red Blood Count 4.11 M/mm3 (4.2-5.4); Red Cell Distribution Width 13.1 % (11.5-14.5); White Blood Count 12.2 K/mm3 (4.5-10.0)
--- NOTE | 2023-06-24 07:14 | P.PNOB_ITS ---
OB - PN: Subj Subjective Date/time seen: 06/24/23 07:14 Narrative: PPD#1 Reyna reports doing well today. 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 Her pain is controlled. She is tolerating regular diet, voiding, passing gas, and ambulating without issues. She is breast feeding. She would like her son circumcised. OB - PN: Obj Data Labs 06/24/23 05:45 Labs: Laboratory Results - last 24 hr 06/22/23 06/24/23 21:04 05:45 WBC 12.2 H RBC 4.11 L Hgb 13.0 Hct 39.3 MCV 95.6 MCH 31.6 MCHC 33.1 RDW 13.1 Plt Count 104 L MPV 12.2 H RPR Non-reactive OB - PN A/P Assessment and Plan (1) Normal vaginal delivery of second : Code(s): O80 - Encounter for full-term uncomplicated delivery Status: Acute Plan day: 1 Plan: routine care and discharge home Comments: - Pelvic rest; take meds as prescribed - ER return precautions: fever, n/v/abd pain, bleeding, HTN Time Spent With Patient Time: Total time spent is greater than 50% in coordination of care (as documented) at patient's floor/unit and/or counseling patient: Review of Systems Constitutional: Constitutional: Denies chills, Denies fever(s) and Denies h eadache(s) Eyes: Eyes: Denies change in vision ENT: Denies dizziness and Denies headache(s) Cardiovascular: Cardiovascular: Denies chest pain, Denies palpitations and Denies dyspnea Respiratory: Respiratory: Denies cough and Denies dyspnea Gastrointestinal: Gastrointestinal: Denies nausea and Denies vomiting Neurologic: Denies dizziness and Denies headache(s) Endocrine: Endocrine: Denies palpitations Exam Const: General: cooperative, comfortable and no acute distress Orientation/consciousness: patient oriented x3 Resp: Effort & Inspection: normal respiratory effort Auscultation: clear to auscultation bilaterally Cardio: Rate: regular rate GI: Inspection: non-distended GI Palp: No abdominal tenderness and Yes Soft to palpation Auscultation: normal bowel sounds : Other: fundus firm Skin: General skin exam: normal color Neuro: General: patient oriented x3 Extrem: General: normal to inspection Psych: Appearance: grossly normal Affect: normal affect Attitude: cooperative
--- NOTE | 2023-06-24 07:20 | P.DS_ITS ---
DS: Admitting Diagnosis Discharge Date 06/24/23 Admitting Diagnosis Labor at term DS: Discharge Diagnosis Discharge Diagnosis (1) Normal vaginal delivery of second : Code(s): O80 - Encounter for full-term uncomplicated delivery Status: Acute OB - DS: Summary OB Procedures : Ultrasound OB Procedures Intrapartum: Spontaneous Vag Delivery OB Procedures: : None Peripartum Data Infant Delivery Method: Natural Vaginal Laceration Description: Labial (left) Episiotomy description: None complications: none [place] 1: Gender: Male Disposition of : home Status at Discharge Functional status at discharge: independent ambulation Overall status at discharge: patient is back to baseline Time Spent with Patient Time attestation: Total time spent providing and/or coordinating discharge services: Time spent: Less than 30 minutes Exam Const: General: cooperative, healthy appearing, comfortable and no acute dis tress Orientation/consciousness: patient oriented x3 Resp: Effort & Inspection: normal respiratory effort Auscultation: clear to auscultation bilaterally Cardio: Rate: regular rate GI: Inspection: non-distended GI Palp: No abdominal tenderness and Yes Soft to palpation Auscultation: normal bowel sounds : Other: fundus firm Skin: General skin exam: normal color Neuro: General: patient oriented x3 Extrem: General: normal to inspection Psych: Appearance: grossly normal Affect: normal affect Attitude: cooperative DS: Data Data Completed and Pending Labs on day of discharge: Labs from last 24 hours 06/24/23 06/22/23 05:45 21:04 WBC 12.2 H RBC 4.11 L Hgb 13.0 Hct 39.3 MCV 95.6 MCH 31.6 MCHC 33.1 RDW 13.1 Plt Count 104 L MPV 12.2 H RPR Non-reactive Discharge Plan Discharge Attending physician on discharge: Lynette Cali Discharging Clinician: Lynette Cali Anticipated Discharge Date/Time: 06/24/23 09:00 Patient Disposition: Home, Self-Care Activity: may shower and pelvic rest Diet: regular Patient Instructions: Vaginal Delivery (DC) Stand Alone Forms: General Discharge Information Follow-up/Referrals: Mark Whitman MD [Physician] - 4 Weeks Discharge Medications: New acetaminophen 325 mg Tablet 650 mg PO Q6H PRN (Reason: Mild Pain (1-3) Or Headache) Qty: 60 0RF docusate sodium 100 mg Capsule 100 mg PO BID PRN (Reason: Constipation) Qty: 90 0RF ibuprofen 600 mg Tablet 600 mg PO Q6H PRN (Reason: Cramping) Qty: 40 0RF Continued famotidine 20 mg tablet 20 mg PO BID Qty: 60 6RF Classic 28 mg iron- 800 mcg tablet 1 tablet PO DAILY ferrous sulfate 325 mg (65 mg iron) Tablet 65 mg PO DAILY Discontinued aspirin [Adult Low Dose Aspirin] 81 mg tablet,delayed release (DR/EC) 81 mg PO DAILY Date of admission: 06/22/23 13:27 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
[2023-06-24 07:55] VITALS: BP 123/80; PULSE 80; RESP 16; TEMP 37.1; O2SAT 80
--- NOTE | 2023-06-24 08:09 | WPDANLDPN2 ---
Anes-Prog Note L&D Date/Time: 06/24/23 08:09 Comfortable throughout: labor and delivery Neuraxial method: epidural Epidural/Spinal procedure site: clean & non-tender Neuro status: Neuro function grossly intact. Cardiovascular status: normal Respiratory status: normal Airway patency: baseline Mental status: baseline Post-Op hydration status: normal Vital Signs: Last Vital Signs Temp 36.6 C 06/23/23 23:55 Pulse 92 06/23/23 23:55 Resp 18 06/23/23 23:55 BP 116/76 06/23/23 23:55 Pulse Ox 99 06/23/23 23:55 O2 Del Method Room Air 06/23/23 12:09 Pain score (VAS): 0 Patient feedback: Patient satisfied with anesthetic care.
[2023-06-25 10:27] VITALS: BP 134/80; PULSE 81; RESP 18; TEMP 37.2; O2SAT 100
== END 2023-06-24 14:15 | disposition home or self-care (01) | DRG 806 ==
LOC: ANHLDR 15:04 → ANHOB2 06-23 08:00
PROVIDERS: Admitting Provider Student in an Organized Health Care Education/Training Program; Visit Provider Obstetrics & Gynecology
DX: O70.0 First degree perineal laceration during delivery (principal); O99.12 Other diseases of the blood and blood-forming organs and certain disorders involving the immune mechanism complicating childbirth; Z37.0 Single live birth; O69.81X0 Labor and delivery complicated by cord around neck, without compression, not applicable or unspecified; D69.6 Thrombocytopenia, unspecified; Z3A.40 40 weeks gestation of pregnancy
CPT/HCPCS: 36415; 76819; 85025; 85027; 86592; 86850; 86900; 86901; A9270; J2371; J2590; J2795; J7120